=== PATIENT | female | born 1995 | race Caucasian/White ===

== ENCOUNTER 2024-12-18 14:41 | Emergency (ER) | payer OTHER ==
[~2024-12-18] VITALS: Ht 162.6 cm; Wt 58.1 kg
[2024-12-18] MEDS ORDERED: ACETAMINOPHEN ES 500 MG TABLET ONE (15:45)
[2024-12-18] MEDS ORDERED: IBUPROFEN 600 MG TABLET ONE (15:46)
[2024-12-18] MEDS: IBUPROFEN 600 MG TABLET PO ONE (15:48)
[2024-12-18] MEDS: ACETAMINOPHEN ES 500 MG TABLET PO ONE (15:48)
[2024-12-18] MEDS ORDERED: IBUP-1490 PO (16:48)
[2024-12-18 16:57] VITALS: BP 119/74; TEMP 98; O2SAT 100
== END 2024-12-18 16:58 | disposition home or self-care (01) ==
LOC: ER 14:44
DX: S13.9XXA Sprain of joints and ligaments of unspecified parts of neck, initial encounter (principal); S20.219A Contusion of unspecified front wall of thorax, initial encounter; S00.81XA Abrasion of other part of head, initial encounter; F17.200 Nicotine dependence, unspecified, uncomplicated; Z60.2 Problems related to living alone; V43.52XA Car driver injured in collision with other type car in traffic accident, initial encounter; Y93.89 Activity, other specified; Y92.410 Unspecified street and highway as the place of occurrence of the external cause; Y99.8 Other external cause status
CPT/HCPCS: 70450-TC; 71045-TC; 72125-TC